=== PATIENT | male | born 1980 | race Caucasian/White ===

== ENCOUNTER 2017-02-05 14:19 | Emergency (ER) | payer MEDICARE ==
[~2017-02-05] VITALS: Ht 175.3 cm; Wt 68.0 kg
[2017-02-05] MEDS ORDERED: SUDAFED 12HR120 MG PO (14:58)
[2017-02-05] MEDS ORDERED: MOTRIN800 MG PO (14:58)
[2017-02-05] MEDS ORDERED: BACTRIM DS1 TAB PO (14:58)
[2017-02-05 15:10] VITALS: BP 125/79
== END 2017-02-05 15:10 | disposition home or self-care (01) ==
LOC: ED 14:19
DX: N61.0 Mastitis without abscess (principal); H65.91 Unspecified nonsuppurative otitis media, right ear

== ENCOUNTER 2019-11-25 17:07 | Emergency (ER) | payer MEDICARE ==
[~2019-11-25 17:07] MED LIST: BACTRIM DS1 TAB PO; MOTRIN800 MG PO; SUDAFED 12HR120 MG PO
[2019-11-25 17:25] VITALS: BP 116/77
== END 2019-11-25 19:22 | disposition left against medical advice (07) ==
LOC: ED 17:07
DX: Z91.19 Patient's noncompliance with other medical treatment and regimen (principal)

== ENCOUNTER 2023-06-06 16:52 | Emergency (ER) | payer MEDICAID ==
[~2023-06-06] VITALS: Ht 175.3 cm; Wt 61.3 kg
[2023-06-06] MEDS ORDERED: NAPROXEN500 MG PO (18:50)
[2023-06-06 19:09] VITALS: BP 124/82
== END 2023-06-06 19:10 | disposition home or self-care (01) ==
LOC: ED 16:52
DX: M54.9 Dorsalgia, unspecified (principal); F17.210 Nicotine dependence, cigarettes, uncomplicated

== ENCOUNTER 2024-04-19 09:38 | Emergency (ER) | payer MEDICARE, MEDICAID ==
[~2024-04-19] VITALS: Ht 175.3 cm; Wt 65.7 kg
[~2024-04-19 09:38] MED LIST changes: +NAPROXEN500 MG PO
[2024-04-19 09:45] VITALS: BP 136/91
[2024-04-19 09:50] VITALS: BP 136/91
[2024-04-19] MEDS ORDERED: ALL DAY10 MG PO (09:54)
[2024-04-19] MEDS ORDERED: CEPHALEXIN500 M1 PO (09:54)
[2024-04-19] MEDS ORDERED: PREDNISONE50 MG PO (09:54)
[2024-04-19] MEDS ORDERED: predniSONE 20 MG/TAB PO ONE (09:55)
== END 2024-04-19 10:15 | disposition home or self-care (01) ==
LOC: ED 09:38
DX: L25.9 Unspecified contact dermatitis, unspecified cause (principal); F17.200 Nicotine dependence, unspecified, uncomplicated